=== PATIENT | male | born 1965 | race African-American/Black ===

== ENCOUNTER 2024-01-09 12:49 | Emergency (ER) | payer OTHER ==
[~2024-01-09] VITALS: Ht 177.8 cm; Wt 102.0 kg
[2024-01-09 13:13] VITALS: O2SAT 96
[2024-01-09] MEDS: TRANEXAMIC ACID 1,000MG/10ML IV ONE (13:30)
[2024-01-09 13:51] LABS: BASOPHILS % 1.8 % (0.0-2.0); EOSINOPHILS % 2.2 % (0.0-5.0); HEMATOCRIT. 46.2 % (42.0-52.0); HEMOGLOBIN. 14.8 g/dL (14.0-18.0); LYMPHOCYTES % 30.9 % (20.0-50.0); MEAN CORPUSCULAR HEMOGLOBIN 28.2 pg (28.0-32.0); MEAN CORPUSCULAR VOLUME 88.2 fL (80.0-94.0); MEAN PLATELET VOLUME 8.3 fl (7.4-10.4); MONOCYTES % 9.5 % (2.0-8.0); NEUTROPHILS % 55.6 % (40.0-76.0); PLATELET 243 x1000/uL (130-400); RED BLOOD CELL COUNT 5.23 mill/uL (4.7-6.1); RED CELL DISTRIBUTION WIDTH 14.4 % (11.6-14.6); WHITE BLOOD COUNT 5.3 x1000/uL (4.5-11.0)
[2024-01-09 13:56] LABS: CHLORIDE 109 mEq/L (98-107); POTASSIUM 3.4 mEq/L (3.5-5.1); SODIUM 142 mEq/L (136-145)
[2024-01-09 13:57] LABS: CARBON DIOXIDE 28 mEq/L (21-32)
[2024-01-09 13:58] LABS: CALCIUM 9.2 mg/dL (8.7-10.4)
[2024-01-09] MEDS: FAMOTIDINE 20MG/2ML VIAL IV ONE (14:01)
[2024-01-09] MEDS: DIPHENHYDRAMINE 50MG/ML VIAL IV ONE (14:01)
[2024-01-09] MEDS: METHYLPREDNISOLONE SOD SUCC 125MG/2ML (ACT-O-VIAL) IV ONE (14:01)
[2024-01-09 14:02] LABS: CREATININE 1.2 mg/dL (0.6-1.3); GLUCOSE 94 mg/dL (70-105)
[2024-01-09 14:03] LABS: UREA NITROGEN BLOOD 9 mg/dL (9-23)
[2024-01-09 18:22] VITALS: TEMP 35.94732
[2024-01-09] MEDS: HYDRALAZINE 20MG/ML VIAL IV ONE (18:22)
[2024-01-09] MEDS ORDERED: EPIN0.3P3 IM (19:34)
[2024-01-09 19:45] VITALS: BP 129/86; PULSE 86; RESP 18; O2SAT 100
== END 2024-01-09 20:05 | disposition home or self-care (01) ==
LOC: ER 12:49
DX: T78.3XXA Angioneurotic edema, initial encounter (principal); I10 Essential (primary) hypertension
CPT/HCPCS: 99291; 96374; 96375; 80048; 85025; 36415; J1200; J3490; J0360; J2919